=== PATIENT | female | born 1980 | race Two or more races ===

== ENCOUNTER 2024-07-17 16:12 | Emergency (ER) | payer MEDICAID, SELFPAY ==
[2024-07-17 16:13] VITALS: BMI 35.2
[2024-07-17 16:27] VITALS: BP 145/87; PULSE 100; RESP 20; TEMP 38.2; O2SAT 96
--- NOTE | 2024-07-17 16:28 | XR_ITS ---
Examination: AP chest single view Technique one AP upright portable chest single view Exam date and time: July 17, 2024 1637 hrs. Indications: Coughing shortness of breath today. Findings: Normal heart size No pneumonia or pulmonary edema. The osseous structures are intact Impression: No active disease
--- NOTE | 2024-07-17 16:29 | PD.EDRME ---
Rapid Medical Screening Exam [facility] Arrival date/time: 07/17/24 16:12 Chief Complaint: Chest Pain Vital signs: Vital Signs Temperature 100.7 F H 07/17/24 16:27 Pulse Rate 100 07/17/24 16:27 Respiratory Rate 20 07/17/24 16:27 Blood Pressure 145/87 H 07/17/24 16:27 Pulse Oximetry (%) 96 07/17/24 16:27 Oxygen Delivery Method Room Air 07/17/24 16:27 E Narrative: Fever, congestion, cough, shortness of breath, chest pain x 1 week
[2024-07-17 16:42] VITALS: TEMP 38.2
[2024-07-17] MEDS: ACETAMINOPHEN 500 MG TABLET 1000 MG PO (16:42)
[2024-07-17 16:59] LABS: Basophils % (Auto) 0 % (0-2.5); Eosinophils # (Auto) 0.4 Thou/mm3 (0.0-0.5); Eosinophils % (Auto) 3 % (0-10); Hematocrit 36.9 % (36.0-46.0); Immature Granulocytes % (Auto) 0 % (0-0); Immature Granulocytes Auto 0.06 Thou/mm3 (0.00-0.00); Lymphocytes # (Auto) 2.7 Thou/mm3 (1.0-4.8); Lymphocytes % (Auto) 18 % (10-50); Mean Corpuscular HGB Conc 32.5 g/dl (31.0-37.0); Mean Corpuscular Volume 86 fL (80-100); Monocytes % (Auto) 7 % (0-12); Neutrophils # (Auto) 10.3 Thou/mm3 (1.8-7.7); Neutrophils % (Auto) 71 % (37-80); Nucleated Red Blood Cell % 0 /100 WBC (0); Platelet Count 353 Thou/mm3 (140-440); RDW Standard Deviation 40.4 fL (36.4-46.3); Red Blood Count 4.28 Miln/mm3 (4.00-5.20); White Blood Count 14.5 Thou/mm3 (3.6-11.0)
[2024-07-17 17:28] LABS: B-Type Natriuretic Peptide < 20 pg/mL (0-100)
[2024-07-17 17:29] LABS: Alanine Aminotransferase 12 U/L (10-49); Albumin/Globulin Ratio 1.4 (1.2-2.2); Alkaline Phosphatase 103 U/L (46-116); Anion Gap 7 (7-16); Aspartate Amino Transferase 10 U/L (0-34); BUN/Creatinine Ratio 13 Ratio (12-20); Bilirubin,Total 0.7 mg/dL (0.3-1.2); Blood Urea Nitrogen 8 mg/dL (9-23); Calcium 9.7 mg/dL (8.3-10.6); Calcium (Corrected) 9.7 mg/dL (8.5-10.1); Carbon Dioxide 27.7 mMol/L (20.0-31.0); Chloride 99 mMol/L (98-107); Creatinine (Component) 0.6 mg/dL (0.6-1.3); Estimated Creatinine Clearance 115.6 mL/min (>60); Globulin 3.6 gm/dL (2.3-3.5); Glucose 103 mg/dL (74-106); Osmolality,Calculated 266 (275-295); Potassium 3.7 mMol/L (3.4-5.1); Sodium 134 mMol/L (136-145); Total Protein 8.6 gm/dL (5.7-8.2); Troponin I < 0.002 ng/mL (0.0-0.045); eGFR > 60 See Note
[2024-07-17 21:39] VITALS: BP 127/78; PULSE 81; RESP 16; TEMP 37; O2SAT 98
--- NOTE | 2024-07-17 21:47 | EDNOTE_ITS ---
<Statement entered by Sena Harding MD - 07/17/24 23:19> As co-signing physician, I was present and available for consult prn. I concur with the plan and care as documented by the midlevel provider. ED General RME/HPI General Chief complaint: Chest Pain Stated complaint: CHEST PAIN FOR 7 DAYS Time Seen by Provider: 07/17/24 21:45 Arrival date/time: 07/17/24 16:12 CC: Chest pain HPI ongoing for the past week, persistent worse after meals or when she lays down at night. When asked where the pain was located the patient pointed to her epigastrium. Patient denies any actual anterior chest pain. RME / HPI RME / HPI narrative: Fever, congestion, cough, shortness of breath, chest pain x 1 week Related Data Home Medications ?Medication ?Instructions ?Recorded ?Confirmed vit no.95-ferrous 1 tab PO QDAY 10/02/18 02/26/19 fumarate 28 mg-folic acid 800 mcg tablet () Previous Rx's ?Medication ?Instructions ?Recorded ibuprofen 100 mg tablet 200 mg (2 x 100 mg) PO Q6H #30 tabs 02/27/19 hydrocodone 5 mg-acetaminophen 325 1 tab PO Q8H PRN pain #10 tabs 06/29/ mg tablet ([place]) famotidine 20 mg tablet 20 mg PO QDAY #30 tabs 07/17/24 Allergies Allergy/AdvReac Type Severity Reaction Status Date / Time No Known Allergies Allergy Verified 07/17/24 16:16 Review of Systems Review of Systems Narrative Review of Systems: GEN: No fever, no chills, no weight loss EYES: No discharge, no visual changes, no pain HEENT: No ear pain, no congestion, no sore throat PULM: No shortness of breath, no cough, no congestion CV: No chest pain, no dyspnea on exertion, no palpitations GI: No nausea, no vomiting, no diarrhea, + pain, no constipation : No frequency, no urgency, no dysuria MUSC/SKEL: No joint pain, no back pain SKIN: No rash PSYCH: No hallucinations, no depression HEME/LYMPH: No easy bleeding or bruising tendencies NEURO: No weakness, no headache Past Medical History Past Medical History NEUROLOGIC: Negative Neurological Disorders or Seizures CARDIAC: Negative Cardiac Disorders or Congestive Heart Failure RESPIRATORY: Negative Chronic Obstructive Pulmonary Disease (COPD) GASTROINTESTINAL: Negative Gastrointestinal Disorders, Hepatitis or Colorectal Cancer GENITOURINARY: Negative Genitourinary Disorders or Renal Disease REPRODUCTIVE: Positive Previous Pregnancies; Negative Breast Cancer, Endometriosis, Pelvic Inflammatory Disease or Uterine Prolapse MUSCULOSKELETAL: Negative Musculoskeletal Disorders or Bone Cancer ENDOCRINE: Negative Endocrine Disorders, Diabetes Mellitus Type 1 or Diabetes Mellitus Type 2 HEMATOLOGIC: Negative Blood Disorders or Anemia PSYCHO/SOCIAL: Positive Depression (x 3) OTHER HISTORY: Positive Hospitalization (CHILDBIRTH); Negative Autoimmune Disease, Down Syndrome, Developmental Delay, Shingles, Falls, Blood Transfusions, Blood Transfusion Reaction, Anesthesia Reactions, Organ Transplant, Chemotherapy, Radiation Therapy, Hyperbaric Therapy, MRSA, VRSA, Vancomycin-Resistant Enterococci, Human Immunodeficiency Virus (HIV), Chicken Pox, Measles, Mumps, Rubella (Malagasy Measles), Pertussis, Clostridium Difficile, Cancer, Breast Cancer, Cervical Cancer, Colorectal Cancer, Lung Cancer or Ovarian Cancer Family History FAMILY HISTORY: Negative Family Psychiatric Problems, Family Respiratory Disorders, Family Cardiac Disorders, Family Gastrointestinal Problems, Family Cancer, Family Surgery or Family Anesthesia Reaction Surgical History SURGICAL: Positive Abdominal Surgery and Section (06/27/2020); Negative Cardiac Surgery or Organ Transplant Social History SMOKING STATUS: Never smoker SECOND HAND EXPOSURE: No SUBSTANCE USE: does not use ED Exam Narrative Physical exam: [General: Obese in mild discomfort not in any acute distress Head normocephalic HEENT: Within acceptable limits Neck is supple nontender Chest equal chest rise nontender to palpation Respiratory: Clear to auscultation no wheezes crackles or rubs CV: Rate rhythm is regular no murmurs rubs or clicks Abdomen: Epigastric pain with palpation no reflexive guarding no rebound tenderness no right upper or left upper quadrant pain with palpation over lower quadrant pains with palpation. Back: No CVA tenderness no spinous process tenderness from cervical spine thoracic and lumbar spine Skin: Intact no petechiae rash induration ulceration or crepitus Extremities: Moving all extremity against resistance cap refill less than 2 seconds neurosensory intact Neuro: Awake alert oriented x3 Glascow coma 15 no focal deficits] Course Quality Measures none Orders Category Date Time Status Bedside COVID-19 Antigen Test NOW Care 07/17/24 16:28 Completed Bedside Influenza A&B Antigen Test NOW Care 07/17/24 16:28 Completed EKG (ED ONLY) *Do not use* NOW Care 07/17/24 16:28 Completed CXR [XR chest 1V] Stat Exams 07/17/24 16:28 Completed EKG (ED Only) Stat Exams 07/17/24 16:28 Ordered BNP [B-Type Natriuretic Peptide] Stat Lab 07/17/24 16:50 Completed CBC Stat Lab 07/17/24 16:50 Completed CMP [Comprehensive Metabolic Panel] Stat Lab 07/17/24 16:50 Completed Troponin I Stat Lab 07/17/24 16:50 Completed Acetaminophen Tab [Tylenol ES Tab] Med 07/17/24 16:29 Discontinued 1,000 mg PO X1 ONE Lidocaine 2% Viscous [Xylocaine 2% Viscous] Med 07/17/24 21:56 Discontinued 15 ml PO X1 ONE mg Hyd/Al Hyd/Francois Susp [Maalox Susp] Med 07/17/24 21:56 Discontinued 30 ml PO X1 ONE Vital Signs Vital signs: Vital Signs Temperature 100.7 F H 07/17/24 16:27 Pulse Rate 100 07/17/24 16:27 Respiratory Rate 20 07/17/24 16:27 Blood Pressure 145/87 H 07/17/24 16:27 Pulse Oximetry (%) 96 07/17/24 16:27 Oxygen Delivery Method Room Air 07/17/24 16:27 [facility] Patient data External records reviewed:: [facility] previous records Clinical information provided by:: patient Social determinants that could affect healthcare access:: none Patient has the following chronic illnesses:: None How is presenting disease/condition affected by chronic disease/condition?: u neffected by Evaluation data The following diagnostics were reviewed and interpreted by me:: lab results, radiology exam(s) and EKG tracing(s) Lab and/or radiology exams considered but not ordered:: EKG performed at 1637 shows a ventricular rate of 95 NC interval 125 QRS of 94 QTc of 400 normal sinus rhythm CBC shows no leukocytosis anemia thrombocytopenia Coags within acceptable limits CMP shows no acute electrolyte imbalances renal impairment transaminitis or T. bili elevation. Troponin is negative Interpretation Summary: Patient has epigastric pain is not cardiac related per se however all the cardiac indicators are negative. Heart score of 0 patient be discharged home Medications Medications considered but not ordered:: None Medication administrations:: Medication Administration History Discontinued Medications Acetaminophen (Acetaminophen 500 Mg Tablet) 1,000 mg PO X1 ONE Stop: 07/17/24 16:30 Last Admin: 07/17/24 16:42 Dose: 1,000 mg Documented By: Al Hydrox/Mg Hydrox/Simethicone (Mg Hyd/Al Hyd/Francois (Maalox Reg) Susp 30 Ml Udc) 30 ml PO X1 ONE Stop: 07/17/24 21:57 Last Admin: 07/17/24 22:09 Dose: 30 ml Documented By: SE Lidocaine HCl (Lidocaine Viscous 2% 15 Ml Udc) 15 ml PO X1 ONE Stop: 07/17/24 21:57 Last Admin: 07/17/24 22:09 Dose: 15 ml Documented By: SE None Consultations Consultation(s) initiated? (list below): No Diagnosis Differential Diagnosis ED Complaint MDM: ACS AR pneumonia Most likely diagnosis given after review of the tests above:: Acid reflux Admission Indicated Admission indicated?: not indicated Explain why admission is indicated or not indicated:: Stable for outpatient follow-up Admission Request Was there a request for admission?: No Disposition Plan Disposition Plan: Discharge Discharge Attestation Discharge Attestation: The patient and all family members were given an opportunity to ask questions and understood the discharge instructions. Discharge instructions specifically effects, indications for sooner follow up or return to the emergency department, and the expected course of current diagnosis. Patient condition: Stable Medical Decision Making Differential Diagnosis Differential Diagnosis: ACS AR pneumonia Lab Data 07/17/24 16:50 07/17/24 16:50 Labs: Lab Results 07/17/24 Range/Units 16:50 WBC 14.5 H (3.6-11.0) Thou/mm3 RBC 4.28 (4.00-5.20) Miln/mm3 Hgb 12.0 (12.0-16.0) g/dL Hct 36.9 (36.0-46.0) % MCV 86 (80-100) fL MCH 28.0 (25.0-35.0) pg MCHC 32.5 (31.0-37.0) g/dl RDW Std Deviation 40.4 (36.4-46.3) fL Plt Count 353 (140-440) Thou/mm3 Neut % (Auto) 71 (37-80) % Lymph % (Auto) 18 (10-50) % [place] % (Auto) 7 (0-12) % Eos % (Auto) 3 (0-10) % Baso % (Auto) 0 (0-2.5) % Neut # (Auto) 10.3 H (1.8-7.7) Thou/mm3 Lymph # (Auto) 2.7 (1.0-4.8) Thou/mm3 [place] # (Auto) 1.0 H (0.0-0.8) Thou/mm3 Eos # (Auto) 0.4 (0.0-0.5) Thou/mm3 Baso # (Auto) 0.0 (0.0-0.2) Thou/mm3 Immature Gran # (Auto) 0.06 H (0.00-0.00) Thou/mm3 Absolute Nucleated RBC 0.00 (0.00-0.00) Thou/mm3 Immature Gran % 0 (0-0) % Nucleated RBC % 0 (0) /100 WBC Sodium 134 L (136-145) mMol/L Potassium 3.7 (3.4-5.1) mMol/L Chloride 99 (98-107) mMol/L Carbon Dioxide 27.7 (20.0-31.0) mMol/L Anion Gap 7 (7-16) BUN 8 L (9-23) mg/dL Creatinine 0.6 (0.6-1.3) mg/dL Estim Creat Clear Calc 115.6 (>60) mL/min eGFR > 60 (60 - ) See Note BUN/Creatinine Ratio 13 (12-20) Ratio Glucose 103 (74-106) mg/dL Calculated Osmolality 266 L (275-295) Calcium 9.7 (8.3-10.6) mg/dL Corrected Calcium 9.7 (8.5-10.1) mg/dL Total Bilirubin 0.7 (0.3-1.2) mg/dL AST 10 (0-34) U/L ALT 12 (10-49) U/L Alkaline Phosphatase 103 (46-116) U/L Troponin I < 0.002 (0.0-0.045) ng/mL B-Natriuretic Peptide < 20 (0-100) pg/mL Total Protein 8.6 H (5.7-8.2) gm/dL Albumin 5.0 (3.5-5.0) gm/dL Globulin 3.6 H (2.3-3.5) gm/dL Albumin/Globulin Ratio 1.4 (1.2-2.2) Discharge Plan Plan Patient Disposition: HOME (Self Care) Prescriptions/Referrals Prescriptions/Med Rec: New famotidine 20 mg tablet 20 mg PO QDAY Qty: 30 1RF No Action PNV cmb#95-ferrous fumarate-FA [] 28 mg iron- 800 mcg Tablet 1 tab PO QDAY ibuprofen 100 mg tablet 200 mg PO Q6H Qty: 30 0RF hydrocodone-acetaminophen [[place]] 5-325 mg tablet 1 tab PO Q8H MDD 3 PRN (Reason: pain) Qty: 10 0RF Referrals: Mj Guido MD [Physician] - In 1 week No Primary/Family,Physician [Primary Care Provider] - In 1 week Problem List Clinical Impression: Acute epigastric pain, Acid reflux Patient/Caregiver Discharge Instructions Other Activity Instructions:: Avoid greasy spicy foods take the medications as prescribed is worsening of symptoms follow-up with your primary care provider. Education Materials: ED GERD (Adult) Print Language: Kosovan Stand Alone Forms: Beronica Award Info., Patient Portal Info Letter
[2024-07-17] MEDS: LIDOCAINE VISCOUS 2% 15 ML UDC PO (22:09)
[2024-07-17] MEDS: MG HYD/AL HYD/SIME (Maalox Reg) SUSP 30 ML UDC PO (22:09)
== END 2024-07-17 22:13 | disposition home or self-care (01) ==
PROVIDERS: Physician Assistant; Emergency Provider Emergency Medicine
DX: K21.9 Gastro-esophageal reflux disease without esophagitis (principal); R05.9 Cough, unspecified; R06.02 Shortness of breath
CPT/HCPCS: 36415; 71045; 80053; 83880; 84484; 85025; 87400; 87811; 93005; 99283; J3490; A9270

== ENCOUNTER 2025-02-07 08:57 | Outpatient (AMB) | payer MEDICAID, SELFPAY ==
[2025-02-07 09:17] VITALS: BP 100/65; PULSE 72; RESP 15; TEMP 36.5; O2SAT 97; BMI 32.4
--- NOTE | 2025-02-07 09:17 | AMB.OBINITIA ---
Vital Signs 02/07/25 09:17 Height 1.52 m Height Method Stated Weight 74.956 kg Weight Measurement Method Standing Scale BMI 32.4 BP 100/65 Blood Pressure Source Automatic Cuff Blood Pressure Location Left Upper Arm Position Sitting Respiration 15 Pulse 72 Pulse Source Monitor Temp 97.7 F Temp Source Oral Pulse Oximetry (%) 97 Oxygen Delivery Method Room Air Allergies/Home Meds Allergies & Medications Allergies No Known Allergies Allergy (Verified 02/07/25 09:18) Medication Reconciliation vit no.95-ferrous fumarate 28 mg-folic acid 800 mcg tablet () 1 tab PO QDAY 10/02/18 [History Confirmed 02/07/25] famotidine 20 mg tablet 20 mg PO QDAY #30 tabs 07/17/24 [Rx Confirmed 02/07/25] Intake Visit Data Collection New Patient or Established: Established Patient (seen at [facility] within 3 years) Reason for Visit:: INITIAL CARE TRANSFER Seen by Clinical Staff ONLY (RN/MA): No Software Support Analyst Required: Yes Software Support Analyst's name/title: PADILLA BULLOCK Do You Feel Safe at Home: Yes Authorities Contacted: N/A PCP or OBGYN visit in last 3 months: Yes Hx Now: Yes Are you currently on any form of Control: No Last menstrual period: 07/14/24 Pain Present Currently: No Pain Scale Used: Donahue-Donato/Numerical Pain scale:: 0 Smoking Status Smoking Status: Never smoker Questionnaires Covid-19 Vaccine Questionnaire Has patient been vacinated for Covid-19 Have you been vacinated for Covid-19: Yes PHQ-9 PHQ-2 Over the last 2 weeks, how often have you been bothered by any of the following problems? 1. Little interest or pleasure in doing things: not at all 2. Feeling down, depressed, or hopeless: not at all Total score: 0 PHQ-9 3. Trouble falling or staying asleep, or sleeping too much: Not at all 4. Feeling tired or having little energy: Not at all 5. Poor appetite or overeating: Not at all 6. Feeling bad about yourself - or that you are a failure or have let yourself or your family down: Not at all 7. Trouble concentrating on things, such as reading the newspaper or watching television: Not at all 8. Moving or speaking so slowly that other people could have noticed? - Or the opposite - being so fidgety or restless that you have been moving around a lot more than usual: not at all 9. Thoughts that you would be better off or of hurting yourself in some way: Not at all Total score: 0 Source: Developed by Drs. Dominick King, Rupali Veliz, Camilo Kline and colleagues, with an educational jason from [employer]. Depression screen completed yes Social History Living Situation History Marital Status: Lives With: Children Housing: House Housing Other:: pt lives with and kids Tobacco History Smoking Status: Never smoker Second Hand Smoke Exposure: No Alcohol History Alcohol Intake: Never Domestic Abuse History Do You Feel Safe at Home: Yes History of Present Illness HPI Narrative Vandana Henderson, , presents for routine visit at 16 weeks gestation. Patient has a history of prior delivery. Denies ANGELO, VC, and epigastric pain. - Vandana Henderson is a 5 para 4 patient presenting for Transfer of Care from Dr. Soto. - Estimated due date is 04/20/2025, consistent with a 16-week ultrasound. - Patient has a history of prior . - Risk factors include: - Advanced maternal age - History of previous - Patient desires tubal ligation. - Patient expresses interest in attempting vaginal delivery after (). - Reports history of early delivery with previous . - Denies any current symptoms or complications. 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: Past Medical History Past Medical History: No Hx Neurological Disorders, No Hx Breast Cancer, No Hx Cardiac Disorders, No Hx Cancer, No Hx Blood Disorders, No Hx Anemia, No Hx Gastrointestinal Disorders, No Hx Renal Disease, No Hx Diabetes Mellitus Type 1 and No Hx Diabetes Mellitus Type 2 OB Initial Visit OB Flowsheet OB Flowsheet Initial Weight: Not Recorded Date <del>?</del> EGA Weight BP Alb Glu CTX Pres Fundal ht FHR Mov Dilation Station Effacement Hx Notes Visit Note 02/07/25 <del>?</del> 29w 5d 74.956 kg 100/65 absent cephalic 30 153 active 16w0d here for routine f/u, transferred from Dr. Soto. KHOI 04/20/25 by US. Hx prior and advanced maternal age. Pt desires TLR at delivery and is interested in ?counseled that [facility] does not offer TOLAC; offered referral to [facility] or [facility]. Reports small, intermittent ctx; otherwise feels well. FHR 153 bpm. Plan: CBC, RPR; schedule OB and renal US; tetanus next visit; follow up in 2 wks Menstrual History Menstrual reliability: definite Flow: normal Menstrual regularity: regular Monthly: Yes Age at menarche: 14 On control pills at conception: No Associated symptoms (LMP): Reports fatigue and breast tenderness OB History : 5 # of Living Children: 4 Delivery History 1st : Child's name: CARYN date: 03/12/07 sex: male Delivery type: vaginal Delivery complications: NONE History of depression before or after : No 2nd : Child's name: RADHA date: 06/07/12 sex: male Delivery type: vaginal Delivery complications: NONE History of depression before or after : No 3rd : Child's name: TIA date: 02/26/19 sex: male Delivery type: vaginal Delivery complications: NONE History of depression before or after : No 4th : Child's name: BIJU date: 06/27/20 sex: male Delivery type: Delivery complications: NONE History of depression before or after : No Infection History & Risk Evaluation History of STDs: none Genetic Screening & History Genetic Screening/Teratology Counseling - Includes patient, baby's father, or anyone in either family with: 1. Patient's age 35 years or older as of estimated date of delivery: Yes 2. Thalassemia (Upper Sorbian, Belizean, Mediterranean, or Background); MCV less than 80: No 3. Neural Tube Defect (Meningomyelocele, Spina Bifida, or Anencephaly): No 4. Congenital Heart Defect: No 5. Down Syndrome: No 6. Roger-Sachs (Ashkenazi Mandaeism, Cajun, Wolof [place]): No 7. Georgie Disease (Ashkenazi Mandaeism): No 8. Familial Dysautonomia (Ashkenazi Mandaeism): No 9. Sickle Cell Disease or Trait (): No 10. Hemophilia or other blood disorders: No 11. Muscular Dystrophy: No 12. Cystic Fibrosis: No 13. Wildrose's Chorea: No 14. Mental Retardation/Autism: No 15. Other inherited genetic or chromosomal disorder: No 16. Maternal Metabolic Disorder (EG,TYPE 1 Diabetes, PKU): No 17. Patient or baby's father had a child with defects not listed above: No 18. Recurrent loss or a stillbirth: No 19. Medications (including supplements, vitamins, herbs or otc drugs)/illicit/recreational drugs/alcohol since last menstrual period: No 20. Any other: No Infection History 1. Live with someone with TB or exposed to TB: No 2. Rash or viral illness since last menstrual period: No 3. Hepatitis B,C: No Other (see comments) Source: [employer] Review of Systems Constitutional Constitutional: Reports fatigue Endocrine Endocrine: Reports fatigue Exam General General Appearance: alert, in no apparent distress and healthy appearing Head Head exam: atraumatic Neck Neck exam: Present normal inspection and trachea midline Chest Chest inspection: Present normal inspection and symmetric chest wall rise External exam: Present normal external exam; Absent tenderness Neuro Neurological exam: Present oriented X3 Psych Psychiatric exam: Present normal affect and normal mood Office Procedures OB Clinic LOC & Office Proc's Nursing/Assessment Patient Status: Established Patient OB Clinic Nursing Assessment: Medication Reconciliation, Update PMH in EMR and Vital Signs OB Clinic Coordination of Care: AMA, Complex Care and Chronic Disease 1-5, Consent,records obtained, informed consent, Education Simp Pt/Fam, Lab and Imaging orders, Results/Orders obtained and Staff clarify orders Special Needs: Heart tones Established Patient Charge Established Patient Point Assignment: 155 Established Patient Point Charge: EP Level 4 (120-155) Assessment & Plan Diagnosis / Problem List (1) Maternal care for unspecified type scar from previous delivery: Status: Acute (2) Supervision of high risk , unspecified, third trimester: Status: Acute Plan Problem List - - History of section - Advanced maternal age - Desire for tubal ligation Assessment 5 para 4 patient at 16 weeks gestation based on LMP and ultrasound, with KHOI of 04/20/2025. History of prior section. Advanced maternal age. Patient desires tubal ligation. heart rate 153 bpm, which is within normal range. Patient reports experiencing small, intermittent contractions. Transfer of care from Dr. Soto. records reviewed and noted as scant. Plan - Order kidney ultrasound - Order complete OB ultrasound - Schedule follow-up appointment in 2 weeks - Order labs (CBC and RPR) to be completed before next appointment - Administer tetanus vaccine at next appointment - Discuss options for vaginal delivery at different hospitals ([facility] or [place]) if patient desires, otherwise schedule one week before due date (April 13, 2025) - Perform tubal ligation during as requested by patient 1. Progress Reviewed gestational age, growth, and heart rate. Planned frequent visits (every 2 weeks until 36 weeks, then weekly). 2. Instructed patient to monitor movements and report decreases immediately. 3. Testing Counseled on routine third-trimester labs per guidelines. Discussed potential need for ultrasound or monitoring based on risk factors. 4. Preeclampsia Precaution Educated on preeclampsia signs: severe headache, vision changes, right upper quadrant pain, sudden swelling. Advised urgent reporting of symptoms and discussed blood pressure monitoring if high risk. 5. Labor Precautions Reviewed labor signs: regular contractions, pelvic pressure, back pain, bleeding, or fluid leakage. Instructed to seek immediate care for these symptoms. 6. Lifestyle and Delivery Preparation Reinforced vitamins, nutrition, and safe activity. Discussed plan, pain management, and . Advised on labor preparation (e.g., hospital bag) and expectations. 7. Psychosocial Support Assessed emotional well-being and offered resources for mental health or parenting support.
== END 2025-02-07 09:56 | disposition home or self-care (01) ==
PROVIDERS: Supervising Provider Obstetrics & Gynecology; Visit Provider Obstetrics & Gynecology
DX: O09.293 Supervision of pregnancy with other poor reproductive or obstetric history, third trimester (principal); O34.219 Maternal care for unspecified type scar from previous cesarean delivery; O09.523 Supervision of elderly multigravida, third trimester; Z3A.29 29 weeks gestation of pregnancy
CPT/HCPCS: 99214; G0463

== ENCOUNTER 2025-03-21 08:48 | Outpatient (AMB) | payer MEDICAID, SELFPAY ==
[2025-03-21 08:58] VITALS: BP 128/79; PULSE 77; RESP 16; TEMP 36.6; O2SAT 98; BMI 33.5
--- NOTE | 2025-03-21 08:58 | OBCLNT_ITS ---
Vital Signs 03/21/25 08:58 Height 1.52 m Height Method Stated Weight 77.337 kg Weight Measurement Method Standing Scale BMI 33.5 BP 128/79 Blood Pressure Source Automatic Cuff Blood Pressure Location Left Upper Arm Position Sitting Respiration 16 Pulse 77 Pulse Source Monitor Temp 97.9 F Temp Source Oral Pulse Oximetry (%) 98 Oxygen Delivery Method Room Air Allergies/Home Meds Allergies & Medications Allergies No Known Allergies Allergy (Verified 03/21/25 08:59) Medication Reconciliation vit no.95-ferrous fumarate 28 mg-folic acid 800 mcg tablet () 1 tab PO QDAY 10/02/18 [History Confirmed 03/21/25] famotidine 20 mg tablet 20 mg PO QDAY #30 tabs 07/17/24 [Rx Confirmed 03/21/25] Intake Visit Data Collection New Patient or Established: Established Patient (seen at [facility] within 3 years) Reason for Visit:: CARE Seen by Clinical Staff ONLY (RN/MA): No Telecommunications Field Engineer Required: Yes Telecommunications Field Engineer's name/title: ASH JONES Do You Feel Safe at Home: Yes Authorities Contacted: N/A PCP or OBGYN visit in last 3 months: Yes Hx Now: Yes Are you currently on any form of Control: No Pain Present Currently: No Pain Scale Used: Donahue-Donato/Numerical Pain scale:: 0 Smoking Status Smoking Status: Never smoker Questionnaires Covid-19 Vaccine Questionnaire Has patient been vacinated for Covid-19 Have you been vacinated for Covid-19: Yes PHQ-9 PHQ-2 Over the last 2 weeks, how often have you been bothered by any of the following problems? 1. Little interest or pleasure in doing things: not at all 2. Feeling down, depressed, or hopeless: not at all Total score: 0 PHQ-9 3. Trouble falling or staying asleep, or sleeping too much: Not at all 4. Feeling tired or having little energy: Not at all 5. Poor appetite or overeating: Not at all 6. Feeling bad about yourself - or that you are a failure or have let yourself or your family down: Not at all 7. Trouble concentrating on things, such as reading the newspaper or watching television: Not at all 8. Moving or speaking so slowly that other people could have noticed? - Or the opposite - being so fidgety or restless that you have been moving around a lot more than usual: not at all 9. Thoughts that you would be better off or of hurting yourself in some way: Not at all Total score: 0 Source: Developed by Drs. Dominick King, Rupali Veliz, Camilo Kline and colleagues, with an educational jason from [employer]. 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 Medical History Past Medical History: No Hx Neurological Disorders, No Hx Breast Cancer, No Hx Cardiac Disorders, No Hx Cancer, No Hx Blood Disorders, No Hx Anemia, No Hx Gastrointestinal Disorders, No Hx Renal Disease, No Hx Diabetes Mellitus Type 1 and No Hx Diabetes Mellitus Type 2 Care OB Visit Log OB Flowsheet Initial Weight: Not Recorded Date -?-?-?-?-?-?-?-?-?-?-?-?- EGA Weight BP Alb Glu CTX Pres Fundal ht FHR Mov Dilation Station Effacement Hx Notes Visit Note 02/07/25 -?-?-?-?-?-?-?-?-?-?-?-?- 29w 5d 74.956 kg 100/65 absent cephalic 30 153 active 16w0d here for routine f/u, transferred from Dr. Soto. KHOI 04/20/25 by US. Hx prior C- section and advanced maternal age. Pt desires TLR at delivery and is interested in ?counseled that [facility] does not offer TOLAC; offered referral to [facility] or [facility]. Reports small, intermittent ctx; otherwise feels well. FHR 153 bpm. Plan: CBC, RPR; schedule OB and renal US; tetanus next visit; follow up in 2 wks 03/21/25 -?-?-?-?-?-?-?-?-?-?-?-?- 35w 5d 77.337 kg 128/79 occasional cephalic 36 145 active at 35w5d with prior CS, desires but not offered at current hospital, reports pelvic pressure and sciatica, FHR 145, occasional tightening. Plan: Schedule at 39w, obtain TL consent, f/u in 1 wk, return for tightening or constant pressure. KHOI Calculator Estimated Delivery Date Method Current WG Current Estimate 04/20/25 LMP (Certain) 35w 5d Other Estimates 04/14/25 Ultrasound #1 36w 4d Expected Delivery Route/Plan on 04/13/2025 Office Procedures OB Clinic LOC & Office Proc's Nursing/Assessment Patient Status: Established Patient OB Clinic Nursing Assessment: Medication Reconciliation, Update PMH in EMR and Vital Signs OB Clinic Coordination of Care: AMA, Complex Care and Chronic Disease 1-5, Consent,records obtained, informed consent, Education Simp Pt/Fam, 1 Ins Authorization, Lab and Imaging orders, Results/Orders obtained and Staff clarify orders Special Needs: Heart tones Miscellaneous Interventions: Culture Specimen Collection Established Patient Charge Established Patient Point Assignment: 185 Established Patient Point Charge: EP Level 5 (160-above) Assessment & Plan Diagnosis / Problem List (1) Maternal care for unspecified type scar from previous delivery: Status: Acute (2) Supervision of high risk , unspecified, third trimester: Status: Acute
== END 2025-03-21 09:36 | disposition home or self-care (01) ==
LOC: HODSOBC 08:48
PROVIDERS: PCP Obstetrics & Gynecology; Referring Provider Obstetrics & Gynecology; Supervising Provider Obstetrics & Gynecology; Visit Provider Obstetrics & Gynecology
DX: O09.293 Supervision of pregnancy with other poor reproductive or obstetric history, third trimester (principal); O09.523 Supervision of elderly multigravida, third trimester; O34.219 Maternal care for unspecified type scar from previous cesarean delivery; O09.893 Supervision of other high risk pregnancies, third trimester; O99.353 Diseases of the nervous system complicating pregnancy, third trimester; M54.30 Sciatica, unspecified side; Z3A.35 35 weeks gestation of pregnancy
CPT/HCPCS: 99215; G0463

== ENCOUNTER 2025-03-30 13:18 | Outpatient (AMB) | payer MEDICAID, SELFPAY ==
[2025-03-30 13:35] VITALS: BP 138/91; PULSE 14; RESP 65; TEMP 36.5; O2SAT 98; BMI 33.2
--- NOTE | 2025-03-30 13:35 | OBCLNT_ITS ---
Vital Signs 03/30/25 13:35 Height 1.52 m Height Method Stated Weight 76.714 kg Weight Measurement Method Standing Scale BMI 33.2 BP 138/91 H Blood Pressure Source Automatic Cuff Blood Pressure Location Left Upper Arm Position Sitting Respiration 65 H Pulse 14 L Pulse Source Monitor Temp 97.7 F Temp Source Oral Pulse Oximetry (%) 98 Oxygen Delivery Method Room Air Allergies/Home Meds Allergies & Medications Allergies No Known Allergies Allergy (Verified 03/30/25 13:36) Medication Reconciliation vit no.95-ferrous fumarate 28 mg-folic acid 800 mcg tablet () 1 tab PO QDAY 10/02/18 [History Confirmed 03/30/25] famotidine 20 mg tablet 20 mg PO QDAY #30 tabs 07/17/24 [Rx Confirmed 03/30/25] Intake Visit Data Collection New Patient or Established: Established Patient (seen at [facility] within 3 years) Reason for Visit:: CARE Seen by Clinical Staff ONLY (RN/MA): No 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 1. Little interest or pleasure in doing things: not at all 2. Feeling down, depressed, or hopeless: not at all Total score: 0 PHQ-9 3. Trouble falling or staying asleep, or sleeping too much: Not at all 4. Feeling tired or having little energy: Not at all 5. Poor appetite or overeating: Not at all 6. Feeling bad about yourself - or that you are a failure or have let yourself or your family down: Not at all 7. Trouble concentrating on things, such as reading the newspaper or watching television: Not at all 8. Moving or speaking so slowly that other people could have noticed? - Or the opposite - being so fidgety or restless that you have been moving around a lot more than usual: not at all 9. Thoughts that you would be better off or of hurting yourself in some way: Not at all Total score: 0 Source: Developed by Drs. Dominick King, Rupali Veliz, Camilo Kline and colleagues, with an educational jason from [employer]. 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 Medical History Past Medical History: No Hx Neurological Disorders, No Hx Breast Cancer, No Hx Cardiac Disorders, No Hx Cancer, No Hx Blood Disorders, No Hx Anemia, No Hx Gastrointestinal Disorders, No Hx Renal Disease, No Hx Diabetes Mellitus Type 1 and No Hx Diabetes Mellitus Type 2 Care OB Visit Log OB Flowsheet Initial Weight: Not Recorded Date -?-?-?-?-?-?-?-?-?-?-?-?- EGA Weight BP Alb Glu CTX Pres Fundal ht FHR Mov Dilation Station Effacement Hx Notes Visit Note 02/07/25 -?-?-?-?-?-?-?-?-?-?-?-?- 29w 5d 74.956 kg 100/65 absent cephalic 30 153 active 16w0d here for routine f/u, transferred from Dr. Soto. KHOI 04/20/25 by US. Hx prior C- section and advanced maternal age. Pt desires TLR at delivery and is interested in ?counseled that [facility] does not offer TOLAC; offered referral to [facility] or [facility]. Reports small, intermittent ctx; otherwise feels well. FHR 153 bpm. Plan: CBC, RPR; schedule OB and renal US; tetanus next visit; follow up in 2 wks 03/21/25 -?-?-?-?-?-?-?-?-?-?-?-?- 35w 5d 77.337 kg 128/79 occasional cephalic 36 145 active at 35w5d with prior CS, desires but not offered at current hospital, reports pelvic pressure and sciatica, FHR 145, occasional tightening. Plan: Schedule at 39w, obtain TL consent, f/u in 1 wk, return for tightening or constant pressure. 03/30/25 -?-?-?-?-?-?-?-?-?-?-?-?- 37w 0d 76.714 kg 138/91 occasional cephalic 37 146 active at 37w0d with hx of prior C/S, reports pelvic pressure and brown discharge since Thursday; cervix closed, no dilation, FHR 146. Plan: RTC in 1 week, scheduled for 04/13, go to L&D sooner if labor symptoms or persistent pressure. KHOI Calculator Estimated Delivery Date Method Current WG Current Estimate 04/20/25 LMP (Certain) 37w 0d Other Estimates 04/14/25 Ultrasound #1 37w 6d Expected Delivery Route/Plan on 04/13/2025 Office Procedures OB Clinic LOC & Office Proc's Nursing/Assessment Patient Status: Established Patient OB Clinic Nursing Assessment: Medication Reconciliation, Update PMH in EMR and Vital Signs OB Clinic Coordination of Care: Complex Care and Chronic Disease 1-5, Consent,records obtained, informed consent, Education Simp Pt/Fam, Lab and Imaging orders, Results/Orders obtained and Staff clarify orders Special Needs: Heart tones Established Patient Charge Established Patient Point Assignment: 135 Established Patient Point Charge: EP Level 4 (120-155) Assessment & Plan Diagnosis / Problem List (1) Maternal care for unspecified type scar from previous delivery: Status: Acute (2) Supervision of high risk , unspecified, third trimester: Status: Acute
== END 2025-03-30 13:52 | disposition home or self-care (01) ==
LOC: HODSOBC 13:18
PROVIDERS: Supervising Provider Obstetrics & Gynecology; Visit Provider Obstetrics & Gynecology
DX: O09.523 Supervision of elderly multigravida, third trimester (principal); O09.293 Supervision of pregnancy with other poor reproductive or obstetric history, third trimester; O34.219 Maternal care for unspecified type scar from previous cesarean delivery; Z3A.37 37 weeks gestation of pregnancy
CPT/HCPCS: 99214; G0463

== ENCOUNTER 2025-04-06 03:47 | Inpatient (IN) | payer MEDICAID, SELFPAY ==
[2025-04-06] VITALS (14 sets, daily range): BP systolic 103–132; BP diastolic 50–84; PULSE 69–90; RESP 16–98; TEMP 36.6–37.5; O2SAT 95–99; BMI 33.2
[2025-04-06] MEDS: RINGERS LACTATED 1000 ML 1,000 ML 999 ML IV (04:20)
[2025-04-06] MEDS: METOCLOPRAMIDE INJ 5 MG/ML VIAL 2 ML 10 MG IVP (04:35)
[2025-04-06] MEDS: FAMOTIDINE INJ 10 MG/ML VIAL 2 ML 20 MG IV (04:35)
[2025-04-06] MEDS: ceFAZolin/D5W 2 GM IV 2 GM/100 ML BAG IV (04:45)
--- NOTE | 2025-04-06 04:57 | PD.LDHP ---
Documentation for date of: 04/06/25 OB Labor/Induct. HPI History of Present Illness Chief complaint: contractions : 5 Para: 4 Term pregnancies: 4 pregnancies: 0 Living children: 4 History of Abortions: Spontaneous and Elective: 0 History of Vaginal deliveries: 3 History of sections: Yes (06/27/2020) History of : No Date of last menstrual period: 07/14/24 KHOI: 04/20/25 Gestational Age (weeks): 38 Gestational Age (days): 0 Gestational age based on last menstrual period: 38 History of present illness: Patient presents for regular, painful ctx. No LOF. No vaginal bleeding. Normal movement. No fevers/chills. History of Present Dating criteria: LMP confirmed by 2nd trimester US Adequate Care: Yes (Dr. Soto transferred care to Dr. Black 3rd trimester) Ultrasounds: normal mid trimester US Narrative: Hx of 3 uncomplicated term svds 1 section 2019 for transverse presentation This complicated by AMA (age 45), hx of section, obesity, desire for BTL (signed consent with Dr. Soto on 12/27, consent is on chart and reviewed) Labs Maternal Blood Type: A Pos Labs: Positive: Rubella Titre, Negative: RPR, Hepatitis B, HIV, Chlamydia and Gonorrhea and Unknown: Group Beta Strep Review of Systems Review of Systems Narrative Review of Systems: Review of Systems Systems Reviewed: All systems reviewed, normal except as documented Constitutional Constitutional: Denies body ache(s), Denies chills, Denies fever(s) and Denies headache(s) ENT Ears, Nose, Mouth, and Throat: Denies headache(s) and Denies vertigo Cardiovascular Cardiovascular: Denies chest pain, Denies palpitations, Denies dyspnea and Denies syncope Respiratory Respiratory: Denies cough, Denies dyspnea Gastrointestinal Gastrointestinal: Denies nausea and Denies vomiting Neurologic Neurologic: Denies convulsions, Denies headache(s), Denies other visual disturbances, Denies syncope and Denies vertigo Past Medical History Family History OTHER FAMILY HX: non-contributory Surgical History SURGICAL: Positive Section (06/27/2020) Social History SOCIAL: , 4 children. No tobacco/ETOH/illicit drug use. Past Medical History Comments PMH COMMENT: Obesity Meds Home Medications and Allergies Home Medications ?Medication ?Instructions ?Recorded ?Confirmed ?Type vit no.95-ferrous 1 tab PO QDAY 10/02/18 03/30/25 History fumarate 28 mg-folic acid 800 mcg tablet () Allergies Allergy/AdvReac Type Severity Reaction Status Date / Time No Known Allergies Allergy Verified 04/06/25 05:05 OB Exam Physical Exam Vital signs: Pulse BP 90 105/67 04/06/25 04:08 04/06/25 04:08 Narrative: General: well developed, well nourished, no acute distress, conversant Cardiac: normal heart rate Lungs: breathing without distress Abdomen: soft, gravid, non-tender, no rebound or guarding Extremities: trace edema BLE Detailed Labor and Delivery Exam Dilation (cm): 5 Effacement (%): 80 station: -2 Consistency: soft Presentation: Vertex Membranes: intact Baseline heart rate: 135 monitor accelerations: 15x15 monitor decelerations: None rat exterminator variability: Moderate (11-25) Contraction frequency (min): q2-4 OB Results Labs 04/06/25 04:28 04/06/25 04:28 OB Assessment & Plan Assessment and Plan (1) Active labor at term: Status: Acute Assessment and plan: Vandana is a 45yo with SIUP at 38&0wk in active labor, /-2 with regular ctx q2-4min. Vitals wnl, benign exam. Reassuring assessment. PMhx/ complicated by: -AMA (age 45) -hx of section -obesity -desire for BTL (signed consent with Dr. Soto on 12/27, consent is on chart and reviewed, confirmed with patient she is still 100% sure she is done with childbearing and desires BTL) Plan: -Admit to L&D -Establish IV, routine labs -NPO -Counseled/consented re: section. Discussed all r/b/a to include: bleeding (possible need for blood transfusion), infection (subcutaneous, deeper layers or uterine with possible need for prolonged admission or re-admission for IV antibiotics, I&D with wound packing, etc), injury to nearby structures such as bladder, bowel, ureters, blood vessels, nerves with possible need for re-operation, pain, injury to baby, hysterectomy, DVT/PE, . We also discussed r/b/a to bilateral tubal ligation, small risk of failure of the procedure and possibility of ectopic should failure occur. Answered all questions to patient and their support person's satisfaction. -IV abx ppx: ancef 2g IV x1 -Nursing and anesthesia team aware of plan for section with BTL. Will proceed to OR when team is ready (2) Maternal care for unspecified type scar from previous delivery: Status: Acute (3) Preoperative evaluation for tubal ligation: Status: Acute (2) Maternal care for unspecified type scar from previous delivery Qualifiers: Previous scar type: low transverse Qualified Code(s): O34.211 - Maternal care for low transverse scar from previous delivery
[2025-04-06 04:59] LABS: Basophils # (Auto) 0.0 Thou/mm3 (0.0-0.2); Basophils % (Auto) 0 % (0-2.5); Eosinophils # (Auto) 0.1 Thou/mm3 (0.0-0.5); Eosinophils % (Auto) 1 % (0-10); Hematocrit 37.1 % (36.0-46.0); Hemoglobin 12.2 g/dL (12.0-16.0); Immature Granulocytes Auto 0.03 Thou/mm3 (0.00-0.00); Lymphocytes # (Auto) 3.0 Thou/mm3 (1.0-4.8); Lymphocytes % (Auto) 25 % (10-50); Mean Corpuscular HGB Conc 32.9 g/dl (31.0-37.0); Mean Corpuscular Hemoglobin 29.5 pg (25.0-35.0); Mean Corpuscular Volume 90 fL (80-100); Monocytes # (Auto) 0.7 Thou/mm3 (0.0-0.8); Monocytes % (Auto) 6 % (0-12); Neutrophils # (Auto) 8.0 Thou/mm3 (1.8-7.7); Neutrophils % (Auto) 68 % (37-80); Nucleated Red Blood Cell # 0.00 Thou/mm3 (0.00-0.00); Nucleated Red Blood Cell % 0 /100 WBC (0); Platelet Count 217 Thou/mm3 (140-440); RDW Standard Deviation 43.8 fL (36.4-46.3); Red Blood Count 4.13 Miln/mm3 (4.00-5.20); White Blood Count 11.9 Thou/mm3 (3.6-11.0)
[2025-04-06 05:31] LABS: Alanine Aminotransferase < 7 U/L (10-49); Albumin, Serum 3.7 gm/dL (3.5-5.0); Albumin/Globulin Ratio 1.4 (1.2-2.2); Alkaline Phosphatase 157 U/L (46-116); Anion Gap 12 (7-16); Aspartate Amino Transferase 14 U/L (0-34); BUN/Creatinine Ratio 10 Ratio (12-20); Bilirubin,Total 0.5 mg/dL (0.3-1.2); Blood Urea Nitrogen < 5 mg/dL (9-23); Calcium 9.8 mg/dL (8.3-10.6); Calcium (Corrected) 10.0 mg/dL (8.5-10.1); Carbon Dioxide 20.7 mMol/L (20.0-31.0); Chloride 106 mMol/L (98-107); Creatinine (Component) 0.5 mg/dL (0.6-1.3); Estimated Creatinine Clearance 133.2 mL/min (>60); Globulin 2.7 gm/dL (2.3-3.5); Glucose 83 mg/dL (74-106); Osmolality,Calculated 273 (275-295); Potassium 3.8 mMol/L (3.4-5.1); Sodium 139 mMol/L (136-145); Total Protein 6.4 gm/dL (5.7-8.2); eGFR > 60 See Note
[2025-04-06 05:37] LABS: Syphilis Nonreactive (Nonreactive)
--- NOTE | 2025-04-06 06:12 | PC.RT ---
RT on OR from 05:23 to 06:03 at 1:20 min of 77% spo2, at 03:30 min of 86% spo2 at 4 min of 90% spo2 hr 188 RT dc at 06:03.
--- NOTE | 2025-04-06 07:51 | ESOP_ITS ---
Operative Note - [facility] Procedure Date of procedure: 04/06/25 Procedure Performed: Repeat low transverse section with bilateral tubal ligation via salpingectomy Indication: Vandana is a 45yo with SIUP at 38w0d presenting in active labor 5cm dilated. She has history of 1 prior section for transverse presentation. She was counseled by Dr. Soto regarding BTL and signed consent form with him on 12/27/24. Today she endorses 100% sure she is done with childbearing and desires permanent sterilization. Pre-Op diagnosis: SIUP at 38w0d Active labor Hx of prior section Satisfied parity AMA (age 45) Post-Op diagnosis: SIUP at 38w0d Active labor Hx of prior section Satisfied parity AMA (age 45) Anesthesia type: Spinal Fluids: crystalloid Fluid amount (mL): 4,000 Urine output (mL): 500 Specimen: left tube, right tube and other (placenta and cord not sent to pathology) Estimated blood loss (ml): 800 Findings: Enlarged/globular uterus with thickened myometrium, adhesion of omentum to anterior aspect of uterus, small adhesion of left fallopian tube to left ovary. Otherwise normal appearing fallopian tubes and ovaries. Male in cephalic presentation, apgars 9/9, weight 3320g, time of 0555. Complications: none Narrative: After obtaining informed consent, the patient was taken to the operating room. There was reassuring heart rate tracing prior. Spinal anesthesia was administered. A briscoe catheter was placed and bilateral sequential compression devices were placed. She was then prepped and draped in the normal sterile fashion in the dorsal supine position with left lateral tilt. A timeout was performed to confirm patient name, date of , procedure and indication. The team was in agreement. Spinal anesthesia was found to be adequate using an Allis clamp. Anceph 2g IV x1 were given for prophylaxis. A Pfannenstiel skin incision was then made with the scalpel and carried through to the underlying layer of fascia. The fascia was incised in the midine and the incision was extended laterally with the Wang scissors. The superior and inferior aspects of the fascial incision were then grasped with the Barbara clamps, elevated and the underlying rectus muscles were dissected off bluntly and sharply. The peritoneum was entered digitally and the rectus muscles were then in the midline. The peritoneal incision was then extended superiorly and inferiorly with good visualization of the bladder. An Heri retractor was placed. Bovie cautery was used for adhesiolysis of an adhesion of the omentum to the anterior uterine wall. Hemostasis noted. The lower uterine segment was scored in a transverse fashion (a deep U shape given the thickened myometrium) with the scalpel. Bandage scissors were used to extend the incision upwards at the lateral aspects. The uterus was then entered bluntly and the incision was extended with traction with clear amniotic fluid noted. The 's head was elevated to the level of the incision. Fundal pressure was applied. The head was delivered atraumatically in the OA position. The anterior shoulder, posterior shoulder and corpus were delivered without difficulty. The nose and mouth were suctioned with bulb suction and cord was clamped x2 and cut. was vigorous. The infant was handed off to the awaiting nursing team. Cord blood obtained for typing. The placenta was then removed with uterine massage and cord traction. The uterus was exteriorized and cleared of all clot and debris. Extremely thick, splayed myometrium required 3 layer closure. The innermost aspect of the uterine incision was repaired with 0-vicryl suture in a running locking fashion. This was repeated for a second layer of myometrium. Finally, an imbricating layer was performed using O-Monocry. The uterine incision was inspected and hemostasis was noted. IV pitocin was given per protocol as well as TXA 1g IV and methergine 0.2mg IM. Good uterine tone was achieved and maintained throughout. The Enseal Tissue Sealer device was then used according to twine reeling machine operator instructions to seal and excise closely underlying the fallopian tubes, excising them completely away from the uterus at the proximal ends. This was done on the right followed by the left side, and both fallopian tubes were then sent to pathology. The left fallopian tube had thin adhesions to the left ovary which were lysed with the Enseal. The uterus was returned to the abdomen after re-inspecting the repaired hysterotomy and noting hemostasis. The gutters were cleared of all clot. Hysterotomy closure noted again to be hemostatic as well as the left and right pedicles where fallopian tubes had been excised. Ehri retractor was removed. Surgicel was placed overlying the repaired hysterotomy. The peritoneum was closed using a 3-0 vicryl suture in running fashion. The rectus muscles were inspected and small areas of oozing were cauterized. The fascia was reapproximated with 0-Vicryl suture in a running fashion. The subcutaneous tissue was then irrigated. Fam's fascia was reapproximated using 3-0 vicryl suture in a running fashion in 2 layers. Skin was reapproximated with 4-0 monocryl suture in running subcuticular fashion. The incision was cleaned with a wet lap and dried with a dry lap. Pidgdzbjp-bsjywxsgyky-dteh bandage was applied overlying the incision and activated according to twine reeling machine operator instructions. Fundus was firm at U. Sponge, lap and needle counts were correct x2. The procedure was without complications and the patient tolerated the procedure well. She was taken to recover further on Labor and Delivery, in stable condition. Surgical staff Operation Date: 04/06/25 05:30 Case Staff PLUGGING MACHINE OPERATOR: Antonio Bernstein RN First Assistant: Stephanie Villalobos Diagnosis Discharge Diagnosis (1) delivery delivered: Status: Acute (2) Tubal ligation status: Status: Acute (3) Maternal care for unspecified type scar from previous delivery: Status: Acute (4) Active labor at term: Status: Acute (5) Elderly multigravida delivered: Status: Acute Problem List Completed Was Problem List Reviewed/Reconciled?: Yes (3) Maternal care for unspecified type scar from previous delivery Qualifiers: Previous scar type: low transverse Qualified Code(s): O34.211 - Maternal care for low transverse scar from previous delivery
[2025-04-06] MEDS: KETOROLAC INJ 30 MG/ML VIAL IVP ×2 (11:27→23:51)
[2025-04-06] MEDS: OXYTOCIN in NS 20 units 20 UNIT/1,000 ML BAG 125 UNIT IV (14:54)
[2025-04-06] MEDS: RINGERS LACTATED 1000 ML 1,000 ML 100 ML IV (22:02)
[2025-04-06] MEDS: ACETAMINOPHEN 325 MG TABLET 650 MG PO (22:10)
[2025-04-07 05:07] LABS: Basophils # (Auto) 0.0 Thou/mm3 (0.0-0.2); Basophils % (Auto) 0 % (0-2.5); Eosinophils # (Auto) 0.1 Thou/mm3 (0.0-0.5); Eosinophils % (Auto) 1 % (0-10); Hematocrit 28.4 % (36.0-46.0); Hemoglobin 9.2 g/dL (12.0-16.0); Immature Granulocytes Auto 0.06 Thou/mm3 (0.00-0.00); Lymphocytes # (Auto) 2.1 Thou/mm3 (1.0-4.8); Lymphocytes % (Auto) 16 % (10-50); Mean Corpuscular HGB Conc 32.4 g/dl (31.0-37.0); Mean Corpuscular Hemoglobin 29.6 pg (25.0-35.0); Mean Corpuscular Volume 91 fL (80-100); Monocytes # (Auto) 0.7 Thou/mm3 (0.0-0.8); Monocytes % (Auto) 5 % (0-12); Neutrophils # (Auto) 10.3 Thou/mm3 (1.8-7.7); Neutrophils % (Auto) 78 % (37-80); Nucleated Red Blood Cell # 0.00 Thou/mm3 (0.00-0.00); Nucleated Red Blood Cell % 0 /100 WBC (0); Platelet Count 182 Thou/mm3 (140-440); RDW Standard Deviation 45.4 fL (36.4-46.3); Red Blood Count 3.11 Miln/mm3 (4.00-5.20); White Blood Count 13.2 Thou/mm3 (3.6-11.0)
[2025-04-07] MEDS: KETOROLAC INJ 30 MG/ML VIAL IVP (06:16)
[2025-04-07 08:30] VITALS: BP 100/65; PULSE 74; RESP 17; TEMP 36.7; O2SAT 98
[2025-04-07] MEDS: IBUPROFEN TAB 400 MG TABLET 800 MG PO ×3 (08:31→22:20)
--- NOTE | 2025-04-07 08:45 | PD.LDPPPRG ---
Subjective Subjective Interval history: Delivery type: Patient doing well this morning. No acute complaints. Ambulating, tolerating p.o. and voiding without difficulty. HTN/Pre-Eclampsia screen: No chest pain, shortness of breath, headache, visual changes, epigastric or right upper quadrant pain. Breast-feeding, lochia diminishing. Bowel: Flatus+/ BM+ Exam Vital Signs Temp Pulse Resp BP Pulse Ox O2 Del Method 97.9 F 76 18 103/64 96 Room Air 04/06/25 23:58 04/06/25 23:58 04/06/25 23:58 04/06/25 23:58 04/06/25 23:58 04/06/25 23:58 Constitutional Constitutional: no acute distress Routine HEENT Exam Head: Present normocephalic and atraumatic Eye: Present EOMI and PERRL ENT: Present mucous membranes moist Routine Neck Exam Neck: Present supple and trachea midline Routine Respiratory Exam Respiratory: Present chest non-tender, lungs clear, normal breath sounds and no resp distress Routine Cardiovascular Exam Cardiovascular: Present RRR Routine Abdominal Exam Abdominal: Present soft and normoactive bowel sounds Routine Extremities Exam Extremities: Present full ROM Routine Skin Exam Skin: Present intact, dry and warm Routine Neurological Exam Neurological: Present alert, oriented X3 and CN II-XII intact Routine Psychiatric Exam Psychiatric: Present normal affect and normal thought process Objective Labs 04/07/25 04:42 04/06/25 04:28 Labs: Laboratory Results - last 24 hr 04/07/25 04:42 WBC 13.2 H RBC 3.11 L Hgb 9.2 L D Hct 28.4 L MCV 91 MCH 29.6 MCHC 32.4 RDW Std Deviation 45.4 Plt Count 182 D Neut % (Auto) 78 Lymph % (Auto) 16 [place] % (Auto) 5 Eos % (Auto) 1 Baso % (Auto) 0 Neut # (Auto) 10.3 H Lymph # (Auto) 2.1 [place] # (Auto) 0.7 Eos # (Auto) 0.1 Baso # (Auto) 0.0 Immature Gran # (Auto) 0.06 H Absolute Nucleated RBC 0.00 Immature Gran % 1 H Nucleated RBC % 0 Assessment & Plan Problem List (1) delivery delivered: Status: Acute Assessment and plan: 1. Continue routine /post-op care 2. Labs reviewed, cbc appropriate 3. Remove dressing/[place] 4. Encourage to ambulate, shower 5. Encourage PO intake, breast feeding (2) Tubal ligation status: Status: Acute (3) Maternal care for unspecified type scar from previous delivery: Status: Acute (4) Active labor at term: Status: Acute (5) Elderly multigravida delivered: Status: Acute Time Spent With Patient Time: Total time spent is greater than 50% in coordination of care (as documented) at patient's floor/unit and/or counseling patient:
[2025-04-07 12:00] VITALS: BP 119/80; PULSE 82; RESP 16; TEMP 36.8; O2SAT 98
[2025-04-07 20:00] VITALS: BP 113/74; PULSE 70; RESP 18; TEMP 36.7; O2SAT 96
[2025-04-08 04:00] VITALS: BP 99/60; PULSE 72; RESP 16; TEMP 36.4; O2SAT 98
[2025-04-08] MEDS: IBUPROFEN TAB 400 MG TABLET 800 MG PO (05:47)
--- NOTE | 2025-04-08 08:26 | PD.LDPPPRG ---
Subjective Subjective Interval history: Delivery type: Patient doing well this morning. No acute complaints. Ambulating, tolerating p.o. and voiding without difficulty. HTN/Pre-Eclampsia screen: No chest pain, shortness of breath, headache, visual changes, epigastric or right upper quadrant pain. Breast-feeding, lochia diminishing. Bowel: Flatus+/ BM+ Exam Vital Signs Temp Pulse Resp BP Pulse Ox O2 Del Method 97.5 F 72 16 99/60 98 Room Air 04/08/25 04:00 04/08/25 04:00 04/08/25 04:00 04/08/25 04:00 04/08/25 04:00 04/08/25 04:00 Constitutional Constitutional: no acute distress Routine HEENT Exam Head: Present normocephalic and atraumatic Eye: Present EOMI and PERRL ENT: Present mucous membranes moist Routine Neck Exam Neck: Present supple and trachea midline Routine Respiratory Exam Respiratory: Present chest non-tender, lungs clear, normal breath sounds and no resp distress Routine Cardiovascular Exam Cardiovascular: Present RRR Routine Abdominal Exam Abdominal: Present soft and normoactive bowel sounds Routine Extremities Exam Extremities: Present full ROM Routine Skin Exam Skin: Present intact, dry and warm Routine Neurological Exam Neurological: Present alert, oriented X3 and CN II-XII intact Routine Psychiatric Exam Psychiatric: Present normal affect and normal thought process Objective Labs 04/07/25 04:42 04/06/25 04:28 Assessment & Plan Problem List (1) delivery delivered: Status: Acute Assessment and plan: PPD/POD#2 1. Continue routine care 2. Transition to PO meds. 3. Encourage to ambulate/ breast-feed 4. Anticipate discharge home today. (2) Tubal ligation status: Status: Acute (3) Maternal care for unspecified type scar from previous delivery: Status: Acute (4) Active labor at term: Status: Acute (5) Elderly multigravida delivered: Status: Acute Time Spent With Patient Time: Total time spent is greater than 50% in coordination of care (as documented) at patient's floor/unit and/or counseling patient:
--- NOTE | 2025-04-08 08:27 | PD.LDDS ---
DS: Providers Provider Date of admission: 04/06/25 04:17 Primary care physician: Physician No Primary/Family Admitting Provider: Milana Matute MD Attending Provider on Admission: Cristian Black MD Consults: 04/06/25 07:45 Referral Routine Comment: Attending Provider on DC: Cristian Black MD Discharging Provider: Cristian Black MD DS: Diagnosis Discharge Diagnosis (1) Elderly multigravida delivered: Status: Acute (2) Tubal ligation status: Status: Acute (3) delivery delivered: Status: Acute Problem List Completed Was Problem List Reviewed/Reconciled?: Yes Summary/Hosp Course Brief History: Patient presents for regular, painful ctx. No LOF. No vaginal bleeding. Normal movement. No fevers/chills. Peripartum Data Delivery Method: Low Transverse Episiotomy Description: None Procedures: Procedures Operation Date: 04/06/25 05:30 Actual Procedure Side Surgeon p w/tubal OB Not Applicable Milana Matute MD Time Spent with Patient Time attestation: Total time spent providing and/or coordinating discharge services: Exam Vital Signs Temp Pulse Resp BP Pulse Ox O2 Del Method 97.5 F 72 16 99/60 98 Room Air 04/08/25 04:00 04/08/25 04:00 04/08/25 04:00 04/08/25 04:00 04/08/25 04:00 04/08/25 04:00 Discharge Plan Plan Patient Disposition: HOME (Self Care) Patient condition on transfer: Stable Prescriptions/Referrals Prescriptions/Med Rec: New hydrocodone-acetaminophen 5-325 mg Tablet 1 tab PO Q6H MDD 4 tablets PRN (Reason: Patient rated pain 7 to 8) 7 Days Qty: 15 0RF ibuprofen 800 mg tablet 800 mg PO Q8HR PRN (Reason: Abdominal Discomfort) 10 Days Qty: 20 0RF docusate sodium [Colace] 100 mg capsule 100 mg PO BID Qty: 20 0RF Continued PNV no.95-ferrous fumarate-FA [] 28 mg iron- 800 mcg Tablet 1 tab PO QDAY famotidine 20 mg tablet 20 mg PO QDAY Qty: 30 1RF Referrals: No Primary/Family,Physician [Primary Care Provider] Patient/Caregiver Discharge Instructions Discharge Activity: activity as tolerated and other Other Discharge Activity Instructions:: vaginal rest and no heavy lifting more than 10 pounds for 6 weeks. keep incision clean and dry, do not submerge. no driving while taking narcotic. Other Discharge Diet Instructions: regular diet Education Materials: C Section Dc Print Language: Ukrainian Activity Restrictions/Additional Instructions: follow up with Dr. Black in 1 to 2 weeks for incision check, call clinic for appointment Stand Alone Forms: Beronica Award Info., Patient Portal Info Letter, Work/Release Restrictions, DC from Surgery Discharge Order Discharge Orders: Discharge (Routine); Ordered 04/08/25 Ordered By: Cristian Black Planned Discharge Date 04/08/25
[2025-04-08 09:00] VITALS: BP 116/71; PULSE 80; RESP 17; TEMP 36.9; O2SAT 98
[2025-04-08] MEDS: HYDROcodone/APAP 5/325 TABLET 1 TAB PO (10:16)
== END 2025-04-08 13:10 | disposition home or self-care (01) | DRG 539 ==
LOC: S4NX 06:17 → S4SX 06:17
PROVIDERS: Admitting Provider Obstetrics & Gynecology; Visit Provider Obstetrics & Gynecology
PROC: 0UL70ZZ Occlusion of Bilateral Fallopian Tubes, Open Approach (ICD-10-PCS; CPT 59514; principal; 2025-04-06 05:15)
DX: O34.211 Maternal care for low transverse scar from previous cesarean delivery (principal); Z30.2 Encounter for sterilization; Z37.0 Single live birth; Z3A.38 38 weeks gestation of pregnancy; O99.214 Obesity complicating childbirth; K66.0 Peritoneal adhesions (postprocedural) (postinfection)
CPT/HCPCS: 36415; 80053; 85025; 86780; 86850; 86900; 86901; 94762; J0689; J1885; J2210; J2274; J2371; J2405; J2590; J2765; J3010; J3490; J7120; A9270; J2270

== ENCOUNTER 2025-04-24 10:30 | Outpatient (AMB) | payer MEDICAID, SELFPAY ==
[2025-04-24 10:55] VITALS: BP 130/78; PULSE 70; RESP 17; TEMP 36.6; O2SAT 96; BMI 30.9
--- NOTE | 2025-04-24 10:55 | AMB.GYNCLNOT ---
Vital Signs 04/24/25 10:55 Height 1.52 m Height Method Measured Weight 71.384 kg Weight Measurement Method Standing Scale BMI 30.9 BP 130/78 Blood Pressure Source Automatic Cuff Blood Pressure Location Right Upper Arm Position Sitting Respiration 17 Pulse 70 Pulse Source Monitor Temp 97.8 F Temp Source Temporal Artery Scan Pulse Oximetry (%) 96 Oxygen Delivery Method Room Air Allergies/Home Meds Allergies & Medications Allergies No Known Allergies Allergy (Verified 04/06/25 05:05) Intake Visit Data Collection New Patient or Established: Established Patient (seen at [facility] within 3 years) Reason for Visit:: POST OP Family Services Specialist Required: Yes Family Services Specialist's name/title: PADILLA BULLOCK Do You Feel Safe at Home: Yes Authorities Contacted: N/A PCP or OBGYN visit in last 3 months: Yes Date of Last PCP or OBGYN visit: 04/08/25 Hx Now: No Are you currently on any form of Control: No Pain Present Currently: Yes Pain Location: Abdomen (POST OP ) Pain scale:: 4 Smoking Status 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 1. Little interest or pleasure in doing things: not at all PHQ-9 8. Moving or speaking so slowly that other people could have noticed? - Or the opposite - being so fidgety or restless that you have been moving around a lot more than usual: not at all Source: Developed by Drs. Dominick King, Rupali Veliz, Camilo Kline and colleagues, with an educational jason from [employer]. Social History Living Situation History Lives With: Children Housing: House Housing Other:: pt lives with and kids Tobacco History Smoking Status: Never smoker Second Hand Smoke Exposure: No Alcohol History Alcohol Intake: Never Domestic Abuse History Do You Feel Safe at Home: Yes History of Present Illness HPI Narrative Vandana Henderson presents for a postoperative visit following a section performed on April 06, 2025. The patient reports ongoing leg swelling since the procedure. The patient's incision site was examined during the visit, with the surgical tape still in place. The incision was described as looking really good upon removal of the tape. The patient is currently using a combination of and bottle feeding for the . She mentions using a wrap for abdominal support post-surgery. Regarding postoperative symptoms, the patient reports persistent swelling in her legs. No specific severity or impact on daily functioning was mentioned. 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 The patient is currently and is using a combination of and bottle feeding for infant feeding. ROS: Musculoskeletal: Positive for leg swelling. Exam Narrative Physical exam: - Abdominal: incision site observed. Incision appears to be healing well. No signs of infection or complications noted. - Skin: incision site clean. Tape removed from incision site during examination. Assessment & Plan Diagnosis / Problem List (1) delivery delivered: Status: Acute (2) Tubal ligation status: Status: Acute Plan Status post section: - Patient is 17 days post- section with incision healing well. - Persistent leg swelling, which is common postoperative finding. - Currently using combination of and bottle feeding. Plan: - Remove remaining surgical tape from incision site. - Educate patient on proper incision care: ? Clean with soap and water during showers. ? Allow incision to air dry. ? Avoid application of antiseptics or ointments. - Recommend use of compression garment or wrap for abdominal support. - Reassure patient that leg swelling is expected to resolve within 6 weeks . - Encourage increased activity and walking to promote circulation and reduce swelling. - Schedule follow-up appointment in one month.
== END 2025-04-24 11:02 | disposition home or self-care (01) ==
LOC: HODSOBC 10:30
PROVIDERS: Supervising Provider Obstetrics & Gynecology; Visit Provider Obstetrics & Gynecology
DX: Z39.2 Encounter for routine postpartum follow-up (principal); Z39.1 Encounter for care and examination of lactating mother; Z98.51 Tubal ligation status
CPT/HCPCS: 99213; G0463

== ENCOUNTER 2025-05-29 10:33 | Outpatient (AMB) | payer MEDICAID, SELFPAY ==
[2025-05-29 10:58] VITALS: BP 113/74; PULSE 76; RESP 14; TEMP 36.6; O2SAT 98; BMI 31.8
--- NOTE | 2025-05-29 10:58 | AMBOBPPN_ITS ---
Vital Signs 05/29/25 10:58 Height 1.52 m Height Method Stated Weight 73.652 kg Weight Measurement Method Standing Scale BMI 31.8 BP 113/74 Blood Pressure Source Automatic Cuff Blood Pressure Location Left Upper Arm Position Sitting Respiration 14 Pulse 76 Pulse Source Monitor Temp 97.8 F Temp Source Oral Pulse Oximetry (%) 98 Oxygen Delivery Method Room Air Allergies/Home Meds Allergies & Medications Allergies No Known Allergies Allergy (Verified 05/29/25 10:59) Medication Reconciliation vit no.95-ferrous fumarate 28 mg-folic acid 800 mcg tablet () 1 tab PO QDAY 10/02/18 [History Confirmed 05/29/25] famotidine 20 mg tablet 20 mg PO QDAY #30 tabs 07/17/24 [Rx Confirmed 05/29/25] Intake Visit Data Collection New Patient or Established: Established Patient (seen at [facility] within 3 years) Reason for Visit:: Seen by Clinical Staff ONLY (RN/MA): No Personnel Interviewer Required: Yes Personnel Interviewer's name/title: ASH JONES Do You Feel Safe at Home: Yes Authorities Contacted: N/A PCP or OBGYN visit in last 3 months: Yes Hx Now: No Are you currently on any form of Control: No Pain Present Currently: No Pain Scale Used: Donahue-Donato/Numerical Pain scale:: 0 Smoking Status Smoking Status: Never smoker Immunizations Flu Vaccine in the Last 12 Months: Yes Flu Vaccine Exclusion Criteria: Already 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 History Past Medical History: No Hx Neurological Disorders, No Hx Breast Cancer, No Hx Cardiac Disorders, No Hx Cancer, No Hx Blood Disorders, No Hx Anemia, No Hx Gastrointestinal Disorders, No Hx Renal Disease, No Hx Diabetes Mellitus Type 1 and No Hx Diabetes Mellitus Type 2 Questionnaires Covid-19 Vaccine Questionnaire Has patient been vacinated for Covid-19 Have you been vacinated for Covid-19: No Social History Living Situation History Lives With: Children Housing: House Housing Other:: pt lives with and kids Tobacco History Smoking Status: Never smoker Second Hand Smoke Exposure: No Alcohol History Alcohol Intake: Never Domestic Abuse History Do You Feel Safe at Home: Yes EPDS - PP Depression Screening [place] Pospartum Depression Screen I have been able to laugh and see the funny side of things: (0) As much as I always could I have looked forward with enjoyment to things: (0) As much as I ever did I have blamed myself unnecessarily when things went wrong: (0) No, never I have been anxious or worried for no good reason: (0) No, not at all I have felt scared or panicky for no very good reason: (0) No, not at all Things have been getting on top of me: (0) No, I have been coping as well as ever I have been so unhappy that I have had difficulty sleeping: (0) No, not at all I have felt sad or miserable: (0) No, not at all I have been so unhappy that I have been crying: (0) No, never The thought of harming myself has occurred to me: (0) Never EPDS completed yes HPI Interval History: Vandana Henderson presents with burning sensation and numbness in the area of her incision site approximately 2 months . She describes the burning as localized to the incision area and reports numbness in the same region. The patient underwent section on November 09, 2024, with concurrent tubal ligation. She has a history of delivery 2 months ago. The patient is currently . She is a patient with an obstetric history of G1 T1 L1. She delivered via section on November 09, 2024, and is approximately 2 months at time of visit. ROS: Positive for burning sensation and numbness in abdominal area. Exam General General Appearance: alert, in no apparent distress and healthy appearing Head Head exam: atraumatic Neck Neck exam: Present normal inspection and trachea midline Chest Chest inspection: Present normal inspection and symmetric chest wall rise External exam: Present normal external exam; Absent tenderness Neuro Neurological exam: Present oriented X3 Psych Psychiatric exam: Present normal affect and normal mood Office Procedures OBC Clinic LOC & Office Proc's Nursing/Assessment Patient Status: Established Patient OB Clinic Nursing Assessment: Update PMH in EMR and Vital Signs OB Clinic Coordination of Care: Complex Care and Chronic Disease 1-5, Consent,records obtained, informed consent, Education Simp Pt/Fam, 1 Ins Authorization, Lab and Imaging orders, Results/Orders obtained and Staff clarify orders Established Patient Charge Established Patient Point Assignment: 115 Established Patient Point Charge: EP Level 3 (80-115) Assessment & Plan Diagnosis / Problem List (1) delivery delivered: Status: Acute (2) Tubal ligation status: Status: Acute (3) Encounter for routine follow-up: Status: Acute Plan abdominal burning sensation: - Burning sensation in the abdomen following section performed 2 months prior. - Physical examination reveals no palpable defects at the incision site with good external appearance. - Related to tissue changes and muscle involvement rather than serious underlying pathology. Plan: - Reassurance that this represents normal tissue changes. - Encourage increased activity level as this will help resolve the symptoms. - No activity restrictions. - No follow-up visit required. abdominal numbness: - Numbness in the abdominal area following section. - Consistent with expected postoperative changes related to nerve healing after surgical incision. Plan: - Reassurance that numbness typically resolves within 3 months postoperatively. - Encourage normal activities with no restrictions. - Increased activity will promote faster resolution.
== END 2025-05-29 11:22 | disposition home or self-care (01) ==
PROVIDERS: Supervising Provider Obstetrics & Gynecology; Visit Provider Obstetrics & Gynecology
DX: Z39.2 Encounter for routine postpartum follow-up (principal); Z98.51 Tubal ligation status
CPT/HCPCS: 99213; G0463